=== PATIENT | male | born 1980 | race Caucasian/White ===

== ENCOUNTER 2018-08-01 22:46 | Inpatient (IN) | payer OTHER ==
[~2018-08-01] VITALS: Ht 193 cm; Wt 127.0 kg
--- NOTE | 2018-08-01 23:45 | ED PSYCHIATRIC COMPLAINT ---
History of Present Illness General Chief Complaint: Psychiatric Related Complaint Stated Complaint: "SOMETHING IS WRONG, I NEED HELP" Source: patient Exam Limitations: no limitations Vital Signs & Intake/Output Vital Signs & Intake/Output Vital Signs Date Time Temp Pulse Resp B/P B/P Pulse O2 O2 Flow FiO2 Mean Ox Delivery Rate 08/02 906 97.8 57 18 128/62 97 08/02 0722 98.1 64 18 112/78 96 08/01 2252 97.7 82 18 157/93 97 Room Air ED Intake and Output 08/02 0000 08/01 1200 Intake Total Output Total Balance Patient 280 lb Weight Weight Reported by Patient Measurement Method Allergies Coded Allergies: No Known Allergies (08/01/18) Triage Note: PT STATES "I THINK THERE'S SOMETHING WRONG WITH ME. I'M AFRAID I MIGHT HURT MYSELF. I CALLED MY SISTER AND SHE TOLD ME TO COME HERE. I FEEL LIKE I CAN'T THINK STRAIGHT." PT DENIES A PLAN. PT DENIES ANY RECENT SI ATTEMPTS BUT STATES HE HAS ATTEMPTED TO OVERDOSE IN THE PAST. PT DENIES ANY DRUR OR ALCOHOL USE TODAY. PT DENIES ANY OTHER COMPLAINTS. Triage Nurses Notes Reviewed? yes Onset: Last week Duration: day(s):, constant, continues in ED, getting worse Timing: recent history Severity: moderate, severe Associated Symptoms: impaired concentration, insomnia, suicidal ideation HPI: One week prior to admission patient has had increasing depression difficulty concentrating sleeping not feeling right with thoughts of harming himself without a specific plan. He is trying to have his methadone dose tapered off. He denies fever chills nausea vomiting diarrhea abdominal pain chest pain shortness breath headache dysuria rash bleeding homicidal ideation hallucination. (Evens STINSON,Selvin) Reconcile Medications Methadone HCl 10 MG/ML ORAL.CONC 100 MG PO DAILY MAINTENCE (Reported) Nicotine (Nicotine Patch) 21 MG/24 HOUR PATCH.TD24 1 PAT TOP DAILY SMOKING ( Reported) Trazodone HCl 100 MG TABLET 1 TAB PO QPM sleep (Reported) (Kirt STINSON,Michael) Past History Travel History Traveled to [place] past 21 day No Medical History Any Pertinent Medical History? see below for history Neurological: seizure Psychiatric: anxiety, depression, substance abuse Surgical History Surgical History: non-contributory Psychosocial History What is your primary language Azeri Tobacco Use: Current Daily Use Daily Tobacco Use Amount/Type: => 5 Cigarettes daily ETOH Use: occasional use Illicit Drug Use: cocaine, heroin, XANAX Family History Hx Contributory? No (Selvin Horner MD) Review of Systems Review of Systems Constitutional: Reports: no symptoms. EENTM: Reports: no symptoms. Respiratory: Reports: no symptoms. Cardiovascular: Reports: no symptoms. GI: Reports: no symptoms. Genitourinary: Reports: no symptoms. Musculoskeletal: Reports: no symptoms. Skin: Reports: no symptoms. Neurological/Psychological: Reports: see HPI, confusion, depressed. Hematologic/Endocrine: Reports: no symptoms. Immunologic/Allergic: Reports: no symptoms. All Other Systems: Reviewed and Negative (Selvin Horner MD) Physical Exam Physical Exam General Appearance: well developed/nourished, alert, awake, anxious, moderate distress Head: atraumatic, normal appearance Eyes: Bilateral: normal appearance, PERRL, EOMI. Ears, Nose, Throat: normal pharynx, normal ENT inspection, hearing grossly normal Neck: normal inspection, supple, full range of motion, no midline tenderness Respiratory: normal breath sounds, chest non-tender, no respiratory distress, quiet respiration, lungs clear Cardiovascular: regular rate/rhythm, normal peripheral pulses, norml femoral pulses equa Gastrointestinal: normal bowel sounds, soft, non-tender, no organomegaly Extremities: normal range of motion, no ligament instability Neurological/Psychiatric: no motor/sensory deficits, awake, alert, anxious, trust and estates paralegal II-XII nml as tested, depressed affect, oriented x 3 Appearance/Memory/Insight: disheveled, impaired insight Behavoir/Eye Contact/Speech: avoids eye contact, cooperative, normal speech Thoughts/Hallucinations: no apparent hallucination Skin: intact, normal color, warm/dry SAD PERSONS SAD PERSONS Response Value Male Sex? yes 1 Depression/Hopelessness? yes 2 Previous Attempts/Psych Care yes 1 Rational Thinking Loss? yes 2 Single//? yes 1 Social Support? has support 0 Stated Future Intent? yes 2 Total 9 SAD PERSONS Done? yes (Selvin Horner MD) Progress Differential Diagnosis: drug intoxication, drug overdose, drug withdrawal, electrolyte abnormality, hypoglycemia Plan of Care: Orders Procedure Date/time Status Heart Healthy Diet 08/02 L Active Regular Diet 08/02 B Complete Admit to inpatient 08/02 1005 Active Code Status 08/02 1005 Active Continuous Observation Monitor 09/07 0325 Active Continuous Observation Monitor 08/01 2330 Active ETHANOL 08/01 2330 Complete COMPREHENSIVE METABOLIC PANEL 08/01 2330 Complete CBC WITHOUT DIFFERENTIAL 08/01 2330 Complete ED CRISIS PSYCH CONSULT 08/01 2330 Active URINE DRUGS OF ABUSE 08/01 2322 Complete URINALYSIS 08/01 2322 Complete Current Medications Sig/Pascual Start time Last Medication Dose Stop Time Status Admin Methadone HCl 100 MG DAILY 08/02 1015 UNVr (Dolophine) Trazodone HCl 100 MG QPM 08/01 234 UNVr 08/01 (Desyrel) 2352 Laboratory Tests 08/02/18 0007: Anion Gap 9, Estimated GFR > 60, BUN/Creatinine Ratio 10.9, Glucose 100 H, Calcium 9.3, Total Bilirubin 0.5, AST 28, ALT 31, Alkaline Phosphatase 39, Total Protein 6.9, Albumin 3.8, Globulin 3.1, Albumin/Globulin Ratio 1.2, CBC w Diff NO MAN DIFF REQ, RBC 4.05 L, MCV 93.5, MCH 33.3 H, MCHC 35.6, RDW 13.4, MPV 7.6, Gran % 41.5 L, Lymphocytes % 47.7, Monocytes % 7.0, Eosinophils % 3.0, Basophils % 0.8, Absolute Granulocytes 2.7, Absolute Lymphocytes 3.1, Absolute Monocytes 0.5, Absolute Eosinophils 0.2, Absolute Basophils 0.1, Serum Alcohol < 10.0 08/01/182327: Urine Opiates Screen < 100, Methadone Screen > 735 H, Barbiturate Screen < 60, Ur Phencyclidine Scrn < 6.00, Amphetamines Screen 898, U Benzodiazepines Scrn > 800 H, Urine Cocaine Screen > 1000 H, Urine Cannabis Screen 9.00, Urine Color YEL, Urine Clarity CLEAR, Urine pH 6.0, Ur Specific [place] >= 1.030, Urine Protein NEG, Urine Ketones NEG, Urine Nitrite NEG, Urine Bilirubin NEG, Urine Urobilinogen 4.0 H, Ur Leukocyte Esterase NEG, Ur Microscopic EXAM NOT REQUIRED , Urine Hemoglobin NEG, Urine Glucose NEG Hand-Off Endorsed To: Michael Moralez MD Endorsed Time: 0700 Pending: consult (Selvin Horner MD) Departure Departure Disposition: STILL A PATIENT Condition: Stable Clinical Impression Primary Impression: Depression with suicidal ideation Secondary Impressions: Benzodiazepine abuse, Cocaine abuse Referrals: Patient Has No Primary Care Dr (PCP/Family) Departure Forms: Customer Survey General Discharge Information (Evens STINSON,Selvin)
[2018-08-02 00:25] LABS: ABSOLUTE BASOPHIL COUNT 0.1 /CUMM (0.0-0.2); ABSOLUTE EOSINOPHIL COUNT 0.2 /CUMM (0.0-0.7); ABSOLUTE GRANULOCYTE CT 2.7 /CUMM (1.4-6.5); ABSOLUTE LYMPH COUNT 3.1 /CUMM (1.2-3.4); ABSOLUTE MONOCYTE COUNT 0.5 /CUMM (0.10-0.60); BASOPHIL % 0.8 % (0.0-2.0); GRANULOCYTE % 41.5 % (42.2-75.2); HEMATOCRIT 37.8 % (42-52); MEAN CORPUSCULAR HGB 33.3 PG (27.0-31.0); MEAN CORPUSCULAR HGB CONC 35.6 G/DL (33.0-37.0); MEAN CORPUSCULAR VOLUME 93.5 FL (80.0-94.0); MEAN PLATELET VOLUME 7.6 FL (7.4-10.4); PLATELET COUNT 210 /CUMM (130-400); RBC DISTRIBUTION WIDTH 13.4 % (11.5-14.5); RED BLOOD CELL CT 4.05 /CUMM (4.70-6.10); WHITE BLOOD CELL COUNT 6.5 /CUMM (4.8-10.8)
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
[2018-08-02] MEDS ORDERED: TRAZODONE HCL100 M1 PO (10:03)
[2018-08-02] MEDS ORDERED: NICOTINE PATCH1 EAC3 TOP (10:03)
[2018-08-02] MEDS ORDERED: METHADONE10 MG/1 M2 PO (10:04)
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
[2018-08-02 12:10] VITALS: BP 149/81
--- NOTE | 2018-08-02 13:34 | History & Physical ---
General Information and HPI History of Present Illness: This young male is admitted for the first time to [facility] because he came in feeling too depressed. He reports that he was having bad thoughts and was afraid he might hurt himself and therefore came to the hospital. He has a history of psychiatric hospitalization in [place] where he claims he stayed for a couple of days and was discharged for the same problem of depression. He is not on any psychiatric medication and claims he goes to methadone clinic to [place] and gets his methadone regularly and he sees a therapist was trying to change him to Subutex. From medical standpoint he denies any ongoing medical problems except he complains of some knee pain and claims he had some injury in [place] a few months ago but did not see any specialist because he did not have any money. He has been working in construction industry for a long time but has not worked last few months since he came to [place] about 9 months ago and claims he only worked for one month out of those 9. His family history is significant for the fact that his claims his father in his 50s and was also a drug abuser and. Himself while using heroin intravenously and injected a large bolus of ear. He claims his mother is alive and lives in [place]. He claims he has 2 siblings and some half brothers and sisters. The patient claims he is never been but he has 2 children from different pills and one is in [place] and was in [place] but they live with their mothers. He admits to smoking about 1 pack of cigarettes a day for about 22 years and denies drinking significant amount of alcohol Allergies/Medications Allergies: Coded Allergies: No Known Allergies (08/01/18) Home Med list Methadone HCl 10 MG/ML ORAL.CONC 100 MG PO DAILY MAINTENCE (Reported) Nicotine (Nicotine Patch) 21 MG/24 HOUR PATCH.TD24 1 PAT TOP DAILY SMOKING ( Reported) Trazodone HCl 100 MG TABLET 1 TAB PO QPM sleep (Reported) Past History Travel History Traveled to [place] past 21 day No Medical History Neurological: seizure EENT: NONE Cardiovascular: NONE Respiratory: NONE Gastrointestinal: Crohn's disease Hepatic: NONE Renal: NONE Musculoskeletal: DEGENERATIVE DISK DISEASE RIGHT KNEE BULGING DISK Psychiatric: anxiety, depression, substance abuse Endocrine: NONE Blood Disorders: NONE Cancer(s): NONE CLINICAL PHARMACY COORDINATOR/Reproductive: NONE History of MRSA: No History of VRE: No History of CDIFF: No Isolation History: Standard Surgical History Surgical History: non-contributory Past Family/Social History Psychosocial History Where do you live? Home ETOH Use: occasional use Illicit Drug Use: cocaine, heroin, XANAX Employment History Employment n/a Review of Systems Review of Systems Constitutional: Reports: see HPI, malaise. EENTM: Denies: no symptoms. Cardiovascular: Denies: no symptoms. Respiratory: Denies: no symptoms. GI: Reports: diarrhea (rarely gets diarrhea but no bl). Denies: no symptoms. Genitourinary: Denies: no symptoms. Musculoskeletal: Reports: see HPI (gets knee pain and right side), joint pain. Skin: Denies: no symptoms. Neurological/Psychological: Reports: see HPI, depressed, emotional problems. Hematologic/Endocrine: Denies: no symptoms. Immunologic/Allergic: Denies: no symptoms. All Other Systems: Reviewed and Negative Exam & Diagnostic Data Last 24 Hrs of Vital Signs/I&O Vital Signs Date Time Temp Pulse Resp B/P B/P Pulse O2 O2 Flow FiO2 Mean Ox Delivery Rate 08/02 1210 96.7 63 149/81 08/02 1210 96.7 63 149/81 08/02 1113 97.8 57 18 127/63 98 /07 0906 97.8 57 18 128/62 97 / 0722 98.1 64 18 112/78 96 / 2252 97.7 82 18 157/93 97 Room Air Intake & Output 08/02 1600 08/02 0800 08/02 0000 Intake Total Output Total Balance Patient 280 lb 280 lb Weight Weight Reported by Patient Measurement Method Physical Exam General Appearance Alert, Oriented X3, Cooperative, No Acute Distress Skin No Rashes, No Breakdown, No Significant Lesion HEENT Atraumatic, PERRLA, EOMI, Mucous Membr. moist/pink Neck Supple, No JVD, No thryomegaly, +2 Carotid Pulse wo Bruit Lymphatic Cervical nl Cardiovascular Regular Rate, Normal S1, Normal S2, No Murmurs, Gallops, Rubs Lungs Clear to Auscultation, Normal Air Movement Abdomen Normal Bowel Sounds, Soft, No Tenderness, No Hepatospenomegaly, No Masses Neurological Exam Findings: Normal Gait, Normal Speech, Strength at 5/5 X4 Ext, Normal Tone, Cranial Nerves 3-12 NL, Reflexes 2+ Cranial Nerves II through XII: wnl Extremities No Clubbing, No Cyanosis, No Edema, No Tenderness/Swelling, good range of motion of the and no localized tenderness. No swelling or deformity and no warmth. Assessment/Plan Assessment: This is a young male admitted for increasing depression as well as drug abuse. He has polysubstance abuse and is on methadone as well as using cocaine and some Xanax. From medical standpoint he reports some knee injury last year but there are no acute findings on exam. We will get a knee x-ray to see any gross abnormality although it does not appear to have any acute injury on exam. We can use Motrin on a when necessary basis for his pain but he does not require any other treatment and problem may need to be evaluated by orthopedics and can be done as outpatient and is a chronic problem. There is no need for any other workup or treatment from medical standpoint at this time. His admission lab work including a CBC electrolytes liver functions are normal the urine toxicology is positive for cocaine and benzodiazepines as well as opiates because of his methadone. As Ranked By This Provider Problem List: 1. Cocaine abuse 2. Benzodiazepine abuse 3. Depression with suicidal ideation Miscellaneous Miscellaneous Documentation Attending Case Discussed With: Apryl STINSON,Fernie Primary Care Physician: Patient Has No Primary Care Dr Patient sees these Specialists none Level of Patient Care: STEPHANIE Zhao Attending MD Review Statement Attending Statement Attending MD Statement: examined this patient, reviewed EMR data (avail), discussed with nursing Attending Assessment/Plan: This young male is admitted for increasing depression and suicidal ideation. He does not have any acute medical problems at this time although he complains of pain and we will get an x-ray to see any acute abnormality which does not seem likely on physical exam. We can use Motrin on a when necessary basis for discomfort or pain but does not require any other workup or treatment. If he continues to have knee symptoms and he can be evaluated by orthopedics and may need an MRI etc. for evaluation which is a chronic problem & can be done as outpatient.
--- NOTE | 2018-08-02 14:43 | CPS PROVIDER INIT ASMT PSYCH ---
Psychiatric Admission Grain Operator's Note Reviewed: Yes Patient Seen and Examined: Yes Identifying Information: Pt is a 38-year old white male Chief Complaint: "last couple times I felt like this I tried killing myself" Reaction to Hospitalization: The patient was admitted voluntarily History of Present Illness Onset of Illness: At least since 2012 Circumstances Leading to Admission: 38-year-old white male who presented to the emergency department after calling his sister who suggested that he goes to the hospital. Patient reported feeling depressed, hopeless, helpless, anxious, and not wanting to be alive anymore. Patient told crisis social sciences chair that the last time he felt like this he "felt like killing himself" Pt has tried to kill himself 5 years ago with pills but reports he woke up and did not take enough to actually kill himself. Pt reports he has cut himself in the past as well. Pt currently is having intermittent thoughts of suicide and they have increased in the past couple weeks. Pt has a family history of suicide (father and uncle), substance abuse and mental health diagnosis. Patient's urine toxicology was positive for methadone, benzodiazepines, and cocaine. His blood alcohol level was undetectable. Problem(s) Justifying Need for Admission: Thoughts of not wanting to be alive /alluding to suicide Past Psychiatric History Past Diagnosis(es)- if any: F32.9 Unspecified Depression F41.9 Unspecified Anxiety F14.20 Stimulant Use D/O (cocaine), moderate F11.20 Opiate Use D/O F13.20 Sed. Hyp. Anx Use D/O crohn's disease back pain pending homelessness Past Precipitating Factors- if any: Substance use - Include inpatient and outpatient treatment Treatment History: The patient reported that he received psychiatric treatment in [place] in 2014 for depression and anxiety. Patient reported to the controlled area checker that he started using cocaine when he was only 15 years of age. He did report that he did receive substance abuse treatment with [facility] the dates are not clear. History of Suicide Attempts or Gestures The patient reported that he had 1 suicide attempt about 5 years earlier by overdosing on pills. He reported that he ended up waking up because he felt that he did not take enough to actually kill himself. There was also report of cutting sent self in the past. Substance Abuse History: Patient has a long-standing substance use history starting at the age of 15 with cocaine. Patient reported that he lately has been using thoughts much but he indicated that he has been using benzodiazepines daily and has been lately on methadone maintenance. Allergies: Coded Allergies: No Known Allergies (08/01/18) Home Med List: The patient was on methadone 100 mg daily Reportedly nicotine patches 21 mg daily and to 100 mg at bedtime. - Include any medical condition(s) that may - impact the patient's recovery/remission Past Medical History: Patient reported that he has chronic stomach problems he thinks that it might be Crohn's disease but she said that they are not sure. Also his past medical history was significant for a seizure it was not specified what it was whether it was a withdrawal seizure or not. Past History Medical History Neurological: seizure EENT: NONE Cardiovascular: NONE Respiratory: NONE Gastrointestinal: Crohn's disease Hepatic: NONE Renal: NONE Musculoskeletal: DEGENERATIVE DISK DISEASE RIGHT KNEE BULGING DISK Psychiatric: anxiety, depression, substance abuse Endocrine: NONE Blood Disorders: NONE Cancer(s): NONE CLOTH SHRINKING TESTER/Reproductive: NONE History of MRSA: No History of VRE: No History of CDIFF: No Isolation History: Standard Surgical History Surgical History: unexplored Psychiatric Family/Social Hx Family History Psychiatric Illness: There seems to be family psychiatric history although the patient does not know the diagnosis that has been a suicide in the family both his father and his uncle he was not clear whether this was depression or bipolar disorder Substance Use: Unexplored Suicides: Father and uncle Social History Living Situation: The patient may be facing homelessness Significant Relationships (family/friends): Sister, February Education: Unexplored Vocation/Occupation: 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 [employer] Behaviors Screening Tobacco Screening Tobacco Use from ED Docu: Current Daily Use Daily Tobacco Use Amount/Type: => 5 Cigarettes daily - If tobacco counseling indicated - the following topics are required. - #1 Recognizing dangerous situations. - #2 Coping Skills. - #3 Basic information about quitting. Status of Tobacco Cessation Counseling: #1, #2 AND #3 Completed Cessation Med Status Nicotine Patch Ordered Alcohol Screening - ETOH screen POS if BAL >=80 or Audit-C>= M4/F3 Audit-C Score from Diag Assess: 2 Blood Alcohol Level: Laboratory Tests 08/02 0007 Toxicology Serum Alcohol (<10 MG/DL) < 10.0 Alcohol Use Screening Results: Neg per Audit C &/or BAL - If ETOH counseling indicated - the following topics are required. - #1 Express concern about the patient's - drinking at unhealthy levels, include informing - of national norms for moderate drinking: - men <= 14 drinks/week, max 4 drinks/occasion - women <= 7 drinks/week, max 3 drinks/occasion - #2 Providing feedback, including linking alcohol to - negative physical effects (liver injury, hypertension) - negative emotional effects (relationship problems and - depression) - negative occupational consequences (reduced work - performance) - #3 Advising the patient to abstain from alcohol or - to drink below national norms for moderate drinking - (as listed above). Status of ETOH Use Counseling: N/A B/C NO ETOH Use Metabolic Screening - Screen if on a Neuroleptic Medication - Metabolic screening should include: - Blood Pressure, BMI, Glucose or Hgb A1c, & a - Lipid profile from within the past 365 days. Metabolic Screening Not Applicable, patient not on a neuroleptic. Exam and Plan Mental Status Examination Ambulation Status: The patient was admitted seem to be uncomfortable Appearance: Total unmuscular male with tattoos over his arms Attitude towards examiner: Marginally cooperative Psychomotor activity: Reduce psychomotor activity Behavior: No abnormal or bizarre behaviors Quality of speech: Very limited Affect: Irritable Mood: Depressed and irritable Suicidal Ideation: Endorse thoughts of suicide/wishing Homicidal Ideation: Denied violent thoughts or thoughts of homicide Hallucinations: Denied hallucinations Paranoid/Delusional Material: Denies feeling paranoid, there were no delusions during the interview. Difficulties with thought organization: Coherent, no thought disorder Insight: He has partial insight Judgment: Questionable judgment Orientation: He was alert and oriented to time, place, and person. Cognition: There was no evidence of impairments and information processing Memory Function: No evidence of short-term memory impairment Estimate of intellectual functioning: Average Assets/Strengths Patient Identified Assets/Strengths: Patient is resourceful, he has a supportive sister Impression/Plan Impression and Plan: 38-year-old white male with significant history for cocaine, benzodiazepine, and opioid use who presented to the emergency department because of statements about thinking of killing himself. The patient's father and uncle killed themselves. The patient's urine toxicology was positive for cocaine and benzodiazepines and methadone. Patient has been on methadone maintenance program at 100 mg daily. The patient has been using benzodiazepines daily. The patient had 1 prior suicide attempt 2 and 1 prior episode of self cutting. It was visibly uncomfortable and irritable and may be experiencing some withdrawals. - Include all active medical diagnosis that require tx DSM 5 Diagnosis(es): Unspecified depressive disorder Opioid use disorder, severe Sedative, hypnotic, anxiolytic use disorder Stimulant use disorder) cocaine and Other specified personality disorder (mixed cluster B History of a seizure Crohn's disease - Initial Tx Plan for Active Psych & Medical Conditions Treatment Plan: Inpatient Psychiatric Care with safety checks every 15 minutes Nursing Assessments, vital signs Biopsychosocial assessment, collateral information, and aftercare planning Group Therapy, Milieu Therapy, Activities Therapy Librium 75 mg tonight Librium 25 mg TID Methadone taper PRNs for symptomatic treatment - Factors that would help patient function - in a less restrictive setting. Factors: will be discharged once he is free of thoughts of suicide x 2 days
[2018-08-02 16:08] VITALS: BP 120/62
--- NOTE | 2018-08-02 17:41 | RADIOLOGY REPORT ---
EXAMINATION: XR KNEE, RIGHT CLINICAL INFORMATION: Right knee pain. COMPARISON: None TECHNIQUE: Four views of the right knee. FINDINGS: Bones and soft tissues are normal. No fracture or joint effusion. Alignment is anatomic. Joint spaces are well maintained. No abnormal soft tissue calcification. IMPRESSION: Normal right knee.
[2018-08-02 19:45] VITALS: BP 122/72
[2018-08-02 19:53] VITALS: BP 122/72
[2018-08-02 21:54] VITALS: BP 144/74
[2018-08-03 08:11] VITALS: BP 100/62
[2018-08-03 08:23] VITALS: BP 100/62
--- NOTE | 2018-08-03 13:39 | CP SOUTH PROGRESS NOTE PSYCH ---
Psych (Inpt) Progress Note Progress Note Include the following elements, when applicable: Involvement in the active treatment of the patient with behavioral observations of the patient and the patient's response to the treatment. Review of the ongoing treatment process in the context of the treatment plan. Indication of how multi-disciplinary staff members are carrying out the treatment plan. Plans for future interventions and recommendations for revision of the treatment plan. Liaison with other physicians/providers. Progress Note: Dr. Mcintosh's note reviewed. Medication list reviewed. Case discussed with nurse, who reports that the patient is denying suicidal ideation. Described as slightly paranoid and irritable. Upset he cannot wear his hat here. CIWA scores are unremarkable. Patient seen at 10:53 AM. Feels okay but a little sick. Denies nausea but states he just does not feel right. Reports he has pain 5/10 inside his gut, back and sides. He is upset about the speed of the methadone taper, which is our protocol. Affect is depressed. Rates sad mood and anxiety both 5/10. Denies feeling hopeless, worthless or guilty. Does feel helpless. Denies active and passive suicidal ideation. Denies homicidal ideation. Denies auditory and visual hallucinations and paranoid ideation. Sleep and appetite are okay. States he does not have any energy. Patient would like to transition from methadone to Subutex. States he did not come in here for detox. In light of Librium order, I will now stop prn lorazepam. IMPRESSION: Slow progress. Continue present treatment plan. Monitor for symptoms of withdrawal. Patient has clonidine available prn along with baclofen and Bentyl.
[2018-08-03 19:52] VITALS: BP 129/71
[2018-08-03 20:01] VITALS: BP 129/71
[2018-08-04 07:54] VITALS: BP 100/51
[2018-08-04 07:55] VITALS: BP 100/51
[2018-08-04 12:22] VITALS: BP 113/59
--- NOTE | 2018-08-04 14:35 | CP SOUTH PROGRESS NOTE PSYCH ---
Psych (Inpt) Progress Note Progress Note Include the following elements, when applicable: Involvement in the active treatment of the patient with behavioral observations of the patient and the patient's response to the treatment. Review of the ongoing treatment process in the context of the treatment plan. Indication of how multi-disciplinary staff members are carrying out the treatment plan. Plans for future interventions and recommendations for revision of the treatment plan. Liaison with other physicians/providers. Progress Note: Case and treatment plan discussed with nurse, who reports that the patient is a little irritable. Keeps to himself. CIWA scores are unremarkable. Patient seen at 12:04 PM. Affect is calm and depressed. Reports it is going "good." Has no questions. Reports opiate withdrawal is not uncomfortable yet, but he is worried it will be bad when he is completely off of methadone. Reports blood pressure was too low for him to use prn clonidine. Reports he does not really have a mood right now. Does not know how to explain how he is feeling. Reports he does not have feeling towards much. Rates sad mood 2/10. Reports anxiety now is 3/10 and is fine when he is by himself or in a one-to-one situation, but it is bad when he is in group or around people. He is not sure if he feels hopeless. Denies feeling helpless and guilty. Does feel worthless. Denies active and passive suicidal ideation. Denies homicidal ideation. Denies auditory and visual hallucinations. Reports paranoia of everyday people in his life, people on the outside, people who get jealous. Sleep: States he does not know, but he has frequent middle of the night awakenings from noise. Appetite: Reports eating well. Energy: Reports he still does not have any energy. Tolerating medications well, without complaint. I offered an antidepressant but patient does not want one. States he had bad side effects from an antidepressant in the past, but he is unable to recall the name of it. IMPRESSION: Slow progress. Continue present treatment plan.
[2018-08-04 16:00] VITALS: BP 93/64
[2018-08-04 20:00] VITALS: BP 93/56
[2018-08-04 20:04] VITALS: BP 93/56
[2018-08-05 07:59] VITALS: BP 115/60
[2018-08-05 08:04] VITALS: BP 115/60
--- NOTE | 2018-08-05 08:12 | CP SOUTH PROGRESS NOTE PSYCH ---
Psych (Inpt) Progress Note Progress Note I reviewed the notes of Dr. Pink over the weekend (08/03 and 08/04/2018). The patient's progress, treatment plan, and aftercare plans were discussed in the treatment team meeting this morning. Team members included: LCSWs, RNs, Activities Therapist, and Psychiatrist. Vital Signs Date Time Temp Pulse Resp B/P B/P O2 08/05 0807 97.0 76 18 115/60 08/05 0807 97.0 76 18 115/60 08/05 0804 76 115/60 08/05 0759 97.0 76 115/60 08/04 2100 76 93/56 08/04 2004 97.6 76 93/56 08/04 2000 97.6 76 93/56 Mental State: Abilio remains depressed but denied thoughts of suicide. Affect is constricted/irritable. Reports anxiety especially in social settings. He is less hopeless because of family visit over weekend. Denies homicidal ideation. Denies auditory and visual hallucinations. Reports paranoia of everyday people in his life, people on the outside, Restless sleep, reported eating too much at lunch/feeling uncomfortable becaus eof that Low energy. Reported dry mouth but otherwise tolerating medications well. Assessment: 38-year-old white male who presented to the emergency department because of statements about thinking of killing himself. The patient's father and uncle killed themselves. The patient's urine toxicology was positive for cocaine and benzodiazepines and methadone. Patient has been on methadone maintenance program at 100 mg daily. The patient has been using benzodiazepines daily. The patient had 1 prior suicide attempt 2 and 1 prior episode of self cutting. So far showing mild improvement Diagnoses: Unspecified Depressive disorder Opioid Use disorder, severe Sedative, hypnotic, anxiolytic use disorder Stimulant use disorder) cocaine and Other specified personality disorder (mixed cluster B History of a seizure Crohn's disease Plan: Continue methadone taper Reduce Librium to 50 mg at bedtime Increase PRN Gabapentin to 600 mg [id number] PRN anxiety/insomnia Other specified personality disorder (mixed cluster B History of a seizure Crohn's disease
--- NOTE | 2018-08-05 17:47 | SOCIAL WORKER PROG NOTE PSYCH ---
Social Work Progress Note Progress Note Abilio was in his room sleeping. Got up when prompted to meet. Complaints of stomach pain today or back pain. He has chronic stomach issues. He presented with a flat depressed affect, minimal eye contact in the beginning of our meeting. Slightly irritable. He denies current suicidal thoughts, states he doesn't want to but it had gotten to a point prior to admission that he didn 't know what else to do. He has had other attempts per his report by attempting to OD on drugs. Stated he always woke up. Reports minimal to no supports. Describes his family as having their own mental health and substance issues and not able to help him out. Views his Sister as manipulative despite her attempts to help him get into the hospital and visiting him here. He said that she took money that she was supposed to get him clothes with. Feels she is only out for herself. Described his living situation as very chaotic with an unstable roommate who apparently recently overdosed on meds and tried to kill himself. He reported this person is now being treated. He does not feel comfortable in returning there and states he has no where to go. He asked how to get into a nursing home? I told him that he will need to call 211 and schedule a CAN Assessment. He has been feeling stuck about his situation and describes himself as being around many negative influences throughout the day. Reports that it takes him about 6 hours from [place] to get to [facility] daily and that he is around many people that are negative. Described difficulties with having Crohn's Disease. Wants to get off Methadone eventually and on Subutex. He is not happy though with the taper of Methadone happening on the unit, due to a dirty tox screen. He said he never would have come in to the hospital if he knew that would be the outcome. I told him he could sign a 3 day paper to terminate voluntary status if he did not want to be here. He didn't feel the need to do that. Asked if he would sign a release for [facility]? He said he prefers to talk to them himself and refused at this time.
--- NOTE | 2018-08-05 19:35 | SOCIAL WORKER PROG NOTE PSYCH ---
Social Work Progress Note Progress Note Determination Status: PENDED The services requested require additional review. You will be contacted regarding the status of this request if further information is needed. An authorization decision will be made within the required timeframes and details of that decision may be found under the member's authorization history. Member Name Member ID Member Subscriber Name Subscriber ID KEYON DOYLE [id number] 1980 KEYON DOYLE [id number] Pended Authorization # Client Authorization # Type of Request [id number] CONCURRENT Date of Admission/ Start of Services Requested From Submission Date 08/02/2018 08/05/2018 08/05/2018 Level of Service Type of Service Level of Care Type of Care INPATIENT/[facility]IENT [facility] Reason Code P76 Provider Name & Address Provider ID Provider Alternate ID NPI # for Authorization MATI VAUGHAN [address] [place] [id number] N/A
[2018-08-05 19:52] VITALS: BP 118/60
[2018-08-06 08:55] VITALS: BP 102/54
--- NOTE | 2018-08-06 09:09 | CP SOUTH PROGRESS NOTE PSYCH ---
Psych (Inpt) Progress Note Progress Note The patient's progress, treatment plan, and aftercare plans were discussed in the treatment team meeting this morning. Team members included: LCSWs, RNs, Activities Therapist, and Psychiatrist. Vital Signs: Date Time Temp Pulse Resp B/P B/P Pulse O2 FiO2 08/06 0855 97.7 73 102/54 08/06 0817 80 118/60 08/05 2104 80 118/60 08/05 195 97.8 80 118/60 Mental State: The pt. is reporting improvement in his mood. He seems to like being in the hospital and already alluding to feeling safe here but not sure about "on the streets." He denied thoughts of suicide. His affect is constricted/irritable. He denies homicidal ideation. He denied hallucinations. He denied feeling paranoid. There were no specific delusions. He was coherent. No evidence of short term memory deficits. Assessment: A 38-year-old white male who was admitted because of statements about thinking of killing himself. The patient's urine toxicology was positive for cocaine and benzodiazepines and methadone. Patient has been on methadone maintenance program at 100 mg daily. The patient has been using benzodiazepines daily. The patient had 1 prior suicide attempt 2 and 1 prior episode of self cutting. 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 Crohn's disease Plan: Change PRN Gabapentin to regular schedule 600 mg TID Increase Trazodone to 100 mg at bedtime Reduce clonidine to 0.1 mg BID Add PRN Gabapentin up to 3 additional doses per day Continue methadone taper Continue Librium 50 mg at bedtime
[2018-08-06 21:38] VITALS: BP 98/72
[2018-08-06 21:57] VITALS: BP 111/63
[2018-08-07 07:50] VITALS: BP 100/64
--- NOTE | 2018-08-07 08:06 | CP SOUTH PROGRESS NOTE PSYCH ---
Psych (Inpt) Progress Note Progress Note The patient's progress, treatment plan, and aftercare plans were discussed in the treatment team meeting this morning. Team members included: LCSWs, RNs, OTR/ L, Activities Therapist, and Psychiatrist. Vital Signs: Date Time Temp Pulse Resp B/P O2 FiO2 08/07 0849 79 100/64 08/07 0750 97.2 79 100/64 08/06 2201 98.1 75 18 111/63 08/06 2157 75 111/63 Mental State: Abilio appeared to be in better spirits, reported improvement in mood. He denied thoughts of suicide. He denies homicidal ideation. He denied hallucinations. He denied feeling paranoid. There were no specific delusions. He was coherent. No evidence of short term memory deficits. Assessment: A 38-year-old single white male who was admitted because of statements about thinking of killing himself. The patient's urine toxicology was positive for cocaine and benzodiazepines and methadone. Patient has been on methadone maintenance program at 100 mg daily. The patient had 1 prior suicide attempt 2 and 1 prior episode of self cutting. 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 Crohn's disease Plan: Reduce methadone to 70 mg PO QAM Reduce Librium to 25 mg at bedtime Change PRN Gabapentin to regular schedule 600 mg TID Increase Trazodone to 100 mg at bedtime D/C clonidine
--- NOTE | 2018-08-07 09:44 | SOCIAL WORKER PROG NOTE PSYCH ---
Social Work Progress Note Progress Note Attempted to meet with Abilio, he was in session with Dr. Mcintosh. He stated 'I am not meeting with different people, just Georgiana." Dr. Mcintosh stated he will review patient's needs with Georgiana when she comes into the office.
--- NOTE | 2018-08-07 15:25 | SOCIAL WORKER PROG NOTE PSYCH ---
Social Work Progress Note Progress Note Abilio shared with me that he was not comfortable working with other social workers that had been approaching him to help him. He said that he preferred to work with me directly. I told him that was fine and that they were qualified to help with out in the same way I was. He understands that he is being discharged soon and is concerned about where he would be going and what should happen if he starts to have symptoms. I recommended IOP. He believes IOP is for substance use and he doesn't agree that he has a substance problem. Brought up the fact that he was using cocaine. He reports it isn't a problem as he has only used 3 times in the past 9 months. He did say that his girlfriend (who is ) can possibly help him out with a hotel for a couple of nights, but then he really would need to get into a halfway. We called [facility] together to schedule a [facility] Assessment. It took a half hour to get this scheduled as the wait time was long and he almost hung up. He answered questions appropriately. He is scheduled for [facility] on Sunday 08/12 between 10-1pm. Denies SI today and reports his thoughts are improved. He does report some thought blocking.
[2018-08-07 19:52] VITALS: BP 110/63
[2018-08-08 08:02] VITALS: BP 98/70
--- NOTE | 2018-08-08 08:20 | CP SOUTH PROGRESS NOTE PSYCH ---
Psych (Inpt) Progress Note Progress Note The patient's progress, treatment plan, and aftercare plans were discussed in the treatment team meeting this morning. Team members included: LCSWs, RNs, OTR/ L, Activities Therapist, and Psychiatrist. Vital Signs: Vital Signs Date Time Temp Pulse B/P B/P Pulse O2 FiO2 08/08 0802 98.7 97 98/70 08/07 1952 98.0 82 110/63 Mental State: Abilio reported some anxiety, appeared to be more attentive with less cognitive symptoms. He reported improvement in mood. He denied thoughts of suicide. He denies homicidal ideation. He denied hallucinations. He denied feeling paranoid. There were no specific delusions. He was coherent. No evidence of short term memory deficits. Assessment: A 38-year-old single white male who was admitted because of statements about thinking of killing himself. The patient's urine toxicology was positive for cocaine and benzodiazepines and methadone. Patient has been on methadone maintenance program at 100 mg daily. The patient had 1 prior suicide attempt 2 and 1 prior episode of self cutting. 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 Crohn's disease Plan: Start Remeron 7.5 mg at bedtime Increase Gabapentin to 900 mg AM and afternoon and 1200 mg at bedtime Reduce Librium to 10 mg at bedtime Continue Trazodone 100 mg at bedtime Continue methadone 70 mg PO QAM
--- NOTE | 2018-08-08 14:36 | SOCIAL WORKER PROG NOTE PSYCH ---
Social Work Progress Note Progress Note Dr. Abbott and I saw Abilio together. Dr. Abbott and Abilio were talking about pushing off his discharge until tomorrow. Abilio reports he found a place he would like to be referred that works on mental health and substance use. I asked where that was? He said [facility] in [place]. I stated that this is a rehab and I was confused due to our conversation yesterday when he said he didn' t need substance use tx. He said he would be willing to go to this program. He said he doesn't know what else to do right now and he has never felt this way before. Reports he is generally positive and is able to work through problems, but doesn't feel like himself. I told him I would fax the referral and he should call in a little while to schedule a phone screening. Has multiple complaints about physical ailments aside from his depressive symptoms. May be somewhat linked to his depression which I pointed out. Faxed referral to [facility] at 2:20pm.
--- NOTE | 2018-08-08 16:53 | SOCIAL WORKER PROG NOTE PSYCH ---
Social Work Progress Note Progress Note Determination Status: PENDED The services requested require additional review. You will be contacted regarding the status of this request if further information is needed. An authorization decision will be made within the required timeframes and details of that decision may be found under the member's authorization history. Member Name Member ID Member Subscriber Name Subscriber ID KEYON DOYLE [id number] 1980 KEYON DOYLE [id number] Pended Authorization # Client Authorization # Type of Request [id number] CONCURRENT Date of Admission/ Start of Services Requested From Submission Date 08/02/2018 08/08/2018 08/08/2018 Level of Service Type of Service Level of Care Type of Care INPATIENT/[facility]PATIENT [facility]PITAL Reason Code P76 Provider Name & Address Provider ID Provider Alternate ID NPI # for Authorization KENNY COPE [address] [place] [id number] N/A Message P76 Attached Documents There are no documents attached with this Authorization Request Document Title Document Description Authorization Printing & Downloading Options: (For the best print results, please print in 'Landscape' format)
--- NOTE | 2018-08-08 19:35 | RADIOLOGY REPORT ---
EXAMINATION: XR CHEST CLINICAL INFORMATION: Clearance for residential rehabilitation in lieu of PPD. COMPARISON: None TECHNIQUE: PA and lateral views of the chest were obtained. FINDINGS: No significant abnormality is noted involving the heart, lungs, mediastinum, bony thorax or soft tissues. Left nipple piercing is noted. IMPRESSION: Normal chest radiograph.
[2018-08-08 19:41] VITALS: BP 110/67
[2018-08-09 08:10] VITALS: BP 114/72
[2018-08-09] MEDS ORDERED: IBUPROFEN800 M1 PO (10:42)
[2018-08-09] MEDS ORDERED: NICOTINE PATCH1 EAC3 TOP (10:42)
[2018-08-09] MEDS ORDERED: GABAPENTIN300 M2 PO (10:42)
[2018-08-09] MEDS ORDERED: METHADONE HCL10 M1 PO ×2 (10:42→10:51)
[2018-08-09] MEDS ORDERED: TRAZODONE HCL100 M1 PO (10:48)
[2018-08-09] MEDS ORDERED: FAMOTIDINE20 M1 PO (10:48)
[2018-08-09] MEDS ORDERED: MIRTAZAPINE15 M2 PO (10:52)
--- NOTE | 2018-08-09 10:54 | Patient Discharge Instructions ---
Psych Discharge Inst General Discharge Information Reason for Admission: "last time I felt like this, I felt like killing myself." Psy Discharge Primary Diag+ Unspecified Depressive DO Psy Discharge Secondary Diag+ Opioid use Disorder Summary Tests/Major Procedures Lab TSH &T3 &Free T4 Intrp 1.880 uIU/mL 08/02/18 0007 Hct 37.8 % L 08/02/18 0007 Hgb 13.5 G/DL L 08/02/18 0007 Methadone Screen > 735 NG/ML H 08/01/18 2328 U Benzodiazepines Scrn > 800 NG/ML H 08/01/18 2328 Urine Cocaine Screen > 1000 NG/ML H 08/01/18 2328 Studies Pending at DC: None Patient Instructions Contact Information Your Psychiatrist on [facility] was Drew Abbott MD * If you are experiencing an emergency related to this hospitalization, please call [phone] to contact the treating psychiatrist or the psychiatrist-on- call. * To Request a copy of your medical records, please contact the Medical Records Department at [phone]. * To request results of studies pending at the time of discharge, please call [phone]. * Continue your Medications until directed to stop by your Healthcare provider. General Medication Information Please continue to take your new medications and your continued home medications , unless otherwise indicated on your discharge medication list, or unless directed by your MD or FALAFEL CART COOK to stop them. Special Instructions Diet Regular Activity Normal - Tobacco Use Treatment Offered Post DC Medications Offered: Script Given-See Med List Post DC Tobacco Treatment Plan: Refused Tobacco Tx Pgm - EtOH/Drug Use D/O Treatment Offered Post DC Medications Offered: Script Given-See Med List Post DC EtOH/SubAbuse [place] Plan: Other SubAbuse/Dual Pgm Metabolic Screening Not Applicable, patient not on a neuroleptic. Advance Directives Does the Patient have Medical Advance Directives No/Refused further info Does Pt have Psychiatric Advance Directives? No/Refused further info Does Patient have a Designated Surrogate Decision Maker: No Information About Psychiatric Advance Directives Provided? Refused Discharge Plan Post Hospital Treatment Plan: [facility]
--- NOTE | 2018-08-09 10:55 | SOCIAL WORKER PROG NOTE PSYCH ---
See Addendum Social Work Progress Note Progress Note Received a message from Shaneka at [facility] that Abilio has a warrant out for his arrest and they cannot consider him for admission until that is resolved. Abilio was in morning group. Prompted him to meet with the doctor and I this morning. Shared the news about the warrant. He didn't seem to be aware of it and stated he thought it was resolved as it was from a charge from years ago. He said he most likely didn't show up to court and that's why. Encouraged him to take care of it, as it is a barrier to him getting into a program. He said he would need to go to [facility]. Dr. Abbott told him that we would be proceeding with discharge today and asked where he would be going over the weekend? He said he didn't know and was hoping things would work out with [facility]. I encouraged him to make some calls. We attempted to call his Sister from the office, but it went to voicemail. Abilio got his phone numbers from his room and is working on making calls from the patient phone. He has been in contact with his girlfriend and reports that he is going to stay at a hotel. Stated he has a bus pass to [place] and plans to use it to get where he is going today. Patient reports he will be ready to leave anytime. Plans to try and resolve his warrant.
[2018-08-09] MEDS ORDERED: ZANTAC300 MG PO (11:20)
--- NOTE | 2018-08-09 12:33 | CP SOUTH PROGRESS NOTE PSYCH ---
Psych (Inpt) Progress Note Progress Note A 38-year-old single white male who was admitted because of statements about thinking of killing himself. The patient's urine toxicology was positive for cocaine and benzodiazepines and methadone. Patient has been on methadone maintenance program at 100 mg daily. The patient had 1 prior suicide attempt 2 and 1 prior episode of self cutting. 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 Crohn's disease The patient's progress, treatment plan, and aftercare plans were discussed in the treatment team meeting this morning. Team members included: LCSWs, RNs, OTR/ L, Activities Therapist, and Psychiatrist. Vital Signs: Date Time Temp Pulse B/P 08/09 0907 97.6 08/09 0823 97.6 08/09 0810 97.6 75 114/72 08/08 1941 98.6 89 110/67 Mental State: Abilio seemed more alert, more attentive, and in better spirits. He reported improvement in mood. He denied thoughts of suicide. He denies homicidal ideation. He denied hallucinations. He denied feeling paranoid. There were no specific delusions. He was coherent. No evidence of short term memory deficits. Plan: D/C Home
--- NOTE | 2018-08-09 12:36 | DISCHARGE SUMMARY REPORT-PSYCH ---
Visit Information Visit Dates/Diagnosis' Admission Date: 08/02/18 Discharge Date: 08/09/18 Reason for Admission: "last time I felt like this, I felt like killing myself." Psy Discharge Primary Diag: Unspecified Depressive DO Psy Discharge Secondary Diag: Opioid use Disorder Hospital Course Course Allergies: Coded Allergies: No Known Allergies (08/01/18) Hospital Course/TX Response: A 38-year-old single white male who was admitted because of statements about thinking of killing himself. The patient's urine toxicology was positive for cocaine and benzodiazepines and methadone. Patient has been on methadone maintenance program at 100 mg daily. The patient had 1 prior suicide attempt 2 and 1 prior episode of self cutting. 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 Crohn's disease The patient's progress, treatment plan, and aftercare plans were discussed in the treatment team meeting this morning. Team members included: LCSWs, RNs, OTR/ L, Activities Therapist, and Psychiatrist. Vital Signs: Date Time Temp Pulse B/P 08/09 0907 97.6 08/09 0823 97.6 08/09 0810 97.6 75 114/72 08/08 1941 98.6 89 110/67 Mental State: Abilio seemed more alert, more attentive, and in better spirits. He reported improvement in mood. He denied thoughts of suicide. He denies homicidal ideation. He denied hallucinations. He denied feeling paranoid. There were no specific delusions. He was coherent. No evidence of short term memory deficits. Plan: D/C Home Discharge HBIPS - Tobacco Use Treatment Offered Post DC Medications Offered: Script Given-See Med List Post DC Tobacco Treatment Plan: Refused Tobacco Tx Pgm - EtOH/Drug Use D/O Treatment Offered Post DC Medications Offered: Script Given-See Med List Post DC EtOH/SubAbuse [place] Plan: Other SubAbuse/Dual Pgm Metabolic Screening - Screen if on a Neuroleptic Medication - Metabolic screening should include: - Blood Pressure, BMI, Glucose or Hgb A1c, & a - Lipid profile from within the past 365 days. Metabolic Screening Not Applicable, patient not on a neuroleptic. Discharge Instructions General Discharge Information Multiple Neuroleptics: Not Applicable Discharge Diet Regular Discharge Activity Normal DC Disposition: Home/Hotel Referrals Ordered Referrals Provider Referral 08/10/18 For Groups: [[facility] ] Patient will resume Methadone Maintenance therapy with [facility] 08/10/18 Recommend dual IOP for mental health and substance use [address] [place], [place] [phone] Provider Referral 08/12/18 For Groups: [[facility]] [facility] for housing/ detention [facility] appt. 08/12/18 10-1pm Address: [address] [place] [address] Prescriptions Continue taking these medications: Nicotine (Nicotine Patch) 21 MG/24 HOUR PATCH.TD24 1 Patch On the skin DAILY Qty = 28 Comments: Last Taken:08/09/18 Time:8AM This prescription has been renewed Trazodone HCl (Trazodone HCl) 100 MG TABLET 1 Tablet ORAL Every night Qty = 15 This prescription has been renewed Start taking the following new medications: Ibuprofen (Ibuprofen) 800 MG TABLET 800 Milligram ORAL EVERY 6 HOURS NEEDED as needed for PAIN SCALE 4-6 ( MODERATE) Qty = 60 No Refills Comments: Last Taken:08/09/18 Time:8AM Gabapentin (Gabapentin) 300 MG CAPSULE 2 Capsule ORAL SEE INSTRUCTIONS Qty = 90 No Refills Instructions: 2 caps in AM, 2 caps afternoon and 4 caps at bedtime Comments: Last Taken:1200MG LAST TAKEN AT BEDTIME Time:THE NEW MORNING AND NOON DOSE WILL START TOMORROW Methadone Hydrochloride (Methadone HCl) 10 MG TABLET 70 Milligram ORAL DAILY Qty = 1 No Refills Comments: Last Taken:08/09/18 Time:8AM Mirtazapine (Mirtazapine) 15 MG TABLET 1 Tablet ORAL Every night Qty = 15 No Refills Ranitidine HCl (Zantac) 300 MG TABLET 1 Tablet ORAL DAILY BEFORE BREAKFAST Qty = 30 No Refills Studies Pending at Discharge None Copies To: [facility]
--- NOTE | 2018-08-09 16:44 | SOCIAL WORKER PROG NOTE PSYCH ---
Social Work Progress Note Faxed Referral(s) Referred To: patient refused to sign release for [facility] Faxed to: patient refused
== END 2018-08-09 13:03 | DRG 754 ==
LOC: ERH 22:46 → ERHI 08-02 10:05 → CP SOUTH 08-02 10:05
PROVIDERS: Emergency Medicine
DX: F32.9 Major depressive disorder, single episode, unspecified (principal); F11.90 Opioid use, unspecified, uncomplicated
CPT/HCPCS: 71046; 73562-RT; 80307; 81003; 93005; 93010; G0480; J0515; J1630; J3101